=== PATIENT | female | born 1935 | race Caucasian/White ===

== ENCOUNTER → 2017-08-30 | Outpatient (CLI) | payer MEDICARE, OTHER ==
[~2017-08-30] MED LIST: ACET325 PO; Antacid500 MG; CALCIUM + D3 E1 EACH PO; CITRUCEL FIBER PO; FISH1000 PO; L-LYSINE500 MG PO; Multiple Vitam1 EAC1 PO; PHILLIPS' COLO1 EACH PO; ROSU10TA PO; TRAZ50 PO
== END ==
LOC: PLD 15:55 → LAB SHORT 15:55
DX: D22.5 Melanocytic nevi of trunk (principal)
CPT/HCPCS: 88305

== ENCOUNTER → 2018-02-05 | Outpatient (CLI) | payer MEDICARE, OTHER | LOC: PLD 11:24 → LAB SHORT 11:24 | DX: D48.5 Neoplasm of uncertain behavior of skin (principal) | CPT/HCPCS: 88305 ==